=== PATIENT | male | born 1955 | race American Indian/Alaskan Native ===

== ENCOUNTER 2016-09-10 03:45 | Inpatient (IN) | payer OTHER ==
[2016-09-10] MEDS ORDERED: MAGNESIUM SULFATE 2GM/50ML 2 GM/50 ML BAG IV ONE (04:03)
[2016-09-10] MEDS ORDERED: PROVENTIL IH ONE ×2 (04:09→06:20)
[2016-09-10 06:11] LABS: Anion Gap 21 mmol/L; Blood Urea Nitrogen 14 mg/dL (9-20); Calcium 8.9 mg/dL (8.4-10.2); Carbon Dioxide 22 mmol/L (22-30); Glucose 110 mg/dL (75-100)
--- NOTE | 2016-09-10 08:04 | Emergency Department Report ---
HPI - General Chief Complaint: Dyspnea/Respdistress Time Seen by Provider: 09/10/16 07:47 - HPI HPI: This is a 63-year-old -[place] male who presents to the emergency department, driven in by a friend, with complaint of a three-day history of shortness of breath, wheezing and a dry cough. The patient has a history of COPD and bronchitis but is not oxygen dependent at home. He has an albuterol inhaler that he has been using without any relief. He does not have a breathing machine at home. He denies any fever, chest pain, back pain, nausea, vomiting or diaphoresis. He does not have a primary care doctor. He denies any tobacco abuse or illicit drug use. No recent travel or sick contacts at home ED Past Medical Hx - Past Medical History Previous Medical History?: Yes Hx Hypertension: Yes Hx Congestive Heart Failure: No Hx Diabetes: No Hx Asthma: No Hx COPD: Yes Additional medical history: BRONCHITIS - Surgical History Past Surgical History?: No - Social History Smoking Status: Never Smoker Substance Use Type: Alcohol - Medications Home Medications: Home Medications Medication Instructions Recorded Confirmed Last Taken Type hydrALAZINE [Apresoline TAB] 50 mg PO Q8HR #90 tablet 02/14/16 04/18/16 Unknown Rx ALBUTEROL NEB's [Proventil 0.083% 2.5 mg IH Q4HRT PRN #30 nebu 04/24/16 Unknown Rx NEBS] Budesonide [Pulmicort Respules] 0.5 mg IH Q12HRT #30 nebu 04/24/16 Unknown Rx HYDROcodone/APAP 5-325 [[place] 1 each PO Q4H PRN #12 tablet 04/24/16 Unknown Rx 5-325 mg TAB] Ipratropium/Albuterol Sulfate 1 ampul IH Q4HRT #30 ampul.neb 04/24/16 Unknown Rx [Duoneb 0.5 mg-3 mg/3 ml Soln] Prednisone [predniSONE 10 mg 10 mg PO .TAPER #1 tab.ds.pk 04/24/16 Unknown Rx (6-Day Pack, 21 Tabs)] amLODIPine [Norvasc] 10 mg PO QDAY #60 tablet 04/24/16 Unknown Rx Clonidine HCl [Catapres] 0.3 mg PO BID #60 tablet 04/25/16 Unknown Rx Losartan [Cozaar] 100 mg PO QDAY #60 tablet 04/25/16 Unknown Rx ED Review of Systems ROS: Stated complaint: LASHAY Other details as noted in HPI Comment: All other systems reviewed and negative Constitutional: denies: chills, fever Eyes: denies: eye pain, eye discharge, vision change ENT: denies: ear pain, throat pain Respiratory: cough, shortness of breath, wheezing Cardiovascular: denies: chest pain, palpitations Gastrointestinal: denies: abdominal pain, nausea, diarrhea Genitourinary: denies: urgency, dysuria Musculoskeletal: denies: back pain, joint swelling, arthralgia Skin: denies: rash, lesions Neurological: denies: headache, weakness, paresthesias Physical Exam - Physical Exam Vital Signs: Vital Signs 09/10/16 03:50 Temperature 98.2 F Pulse Rate 108 H Respiratory 28 H Rate Blood Pressure 186/136 [Right] O2 Sat by Pulse 86 Oximetry Physical Exam: GENERAL: The patient is well-developed well-nourished. HEENT: Normocephalic. Atraumatic. Extraocular motions are intact. Patient has moist mucous membranes. Pupils equal reactive to light bilaterally. NECK: Supple. Trachea is midline. CHEST/LUNGS: Moderate wheezing throughout the chest. A dry cough is heard during examination. No tachypnea or accessory muscle use. There is no respiratory distress noted. HEART/CARDIOVASCULAR: Regular. There is no tachycardia. There is no gallop rub or murmur. ABDOMEN: Abdomen is soft, nontender. Patient has normal bowel sounds. There is no abdominal distention. SKIN: Skin is warm and dry. No significant edema. NEURO: The patient is awake, alert, and oriented. The patient is cooperative. The patient has no focal neurologic deficits. The patient has normal speech. MUSCULOSKELETAL: There is no tenderness or deformity. There is no limitation range of motion. There is no evidence of acute injury. ED Course Vital Signs 09/10/16 03:50 Temperature 98.2 F Pulse Rate 108 H Respiratory 28 H Rate Blood Pressure 186/136 [Right] O2 Sat by Pulse 86 Oximetry ED Medical Decision Making - Lab Data Result diagrams: 09/10/16 04:28 - EKG Data -: EKG Interpreted by Me EKG shows normal: sinus rhythm, axis, intervals (left anterior fascicular blockLeft anterior fasicular block), QRS complexes, ST-T waves Rate: tachycardia (103 bpm) - EKG Data When compared to previous EKG there are: previous EKG unavailable Interpretation: other (sinus rhythm, left anterior fascicular block, mild tachycardia at 103 bpm) - Radiology Data Radiology results: image reviewed interpreted by me: Chest x-ray does not show any pleural effusions, pneumonia or pneumothorax or obvious acute process. - Medical Decision Making 61-year-old male presents with a few days of shortness of breath, wheezing. He denies any chest pain. Vital signs show some tachypnea and tachycardia but he is afebrile. On physical examination he does have some significant bronchospasm. He was given steroids, magnesium 2 different rounds of nebulized breathing treatments and upon reevaluation he is still having significant bronchospasm. He is not in any current respiratory distress and therefore does not appear to require any BiPAP at this time. However he is not improved enough for discharge home and will be admitted for serial steroids, breathing treatments and further evaluation. He has been accepted for admission by the hospitalist, Dr. Greene. - Differential Diagnosis COPD, bronchitis, CHF, pneumonia, [place] Critical Care Time: No Critical care attestation.: If time is entered above; I have spent that time in minutes in the direct care of this critically ill patient, excluding procedure time. ED Disposition Clinical Impression: Acute exacerbation of COPD with asthma, Bronchospasm, Shortness of breath Disposition: OP ADMITTED IP TO THIS HOSP Is pt being admited?: Yes Condition: Stable Referrals: PRIMARY CARE, [Primary Care Provider] - 3-5 Days Time of Disposition: 09:14
--- NOTE | 2016-09-10 08:20 | Admit Criteria Form ---
Admission Criteria Documentation: COPD Clinical Indications for Admission to Inpatient Care (Place 'X' for any and all applicable criteria): Admission is indicated for ANY ONE of the following (1)(2)(3): [ ]I. Acute exacerbation by high-risk comorbidity (e.g., pneumonia, dysrhythmia, heart failure, pleural effusion, pneumothorax) or severe underlying COPD (e.g., steroid dependent) [X ]II. Inpatient admission required rather than observation care (see Chronic Obstructive Pulmonary Disease: Observation Care) because of ANY ONE of the following: [X ]a) New or pre-existing signs or symptoms of COPD (eg, dyspnea or Tachypnea at rest or with minimal activity) that persist despite outpatient and observation care treatment [ ]b) New-onset hypoxemia (room air SaO2 less than 90%, PO2 less than 60 mm Hg (8.0 kPa)) that persists despite outpatient and observation care treatment [ ]c) Worsening of pre-existing hypoxemia (eg, new or increased requirement for supplemental oxygen to maintain oxygenation at baseline level) that persists despite outpatient and observation care treatment, with oxygen treatment needs performable only in acute inpatient setting [ ]d) Hypercarbia (PCO2 greater than 40 mm Hg (5.3 kPa))-induced respiratory acidosis (pH less than 7.35) that persists despite outpatient and observation care treatment [ ]e) Supplemental oxygen or respiratory treatments for over 24 hours that are performable only in acute inpatient setting [ ]f) Chest tube placement with active evacuation (e.g., suction, drainage) (5) [ ]g) Other condition, treatment or monitoring requiring inpatient admission [ ]III. Planned invasive surgical or diagnostic procedures requiring acute- care hospitalization [X ]IV. Acute respiratory failure (e.g., uncompensated hypercarbia, severe hypoxemia) [ ]V. Severe comorbid condition (e.g., severe steroid myopathy, acute vertebral fracture) that has acutely worsened pulmonary function [ ]. Confusion state, lethargy, obtundation, stupor or coma Extended stay beyond goal length of stay may be needed for (31)(32): [ ]a ) Respiratory Failure. [ ]b) Severe or persisting hypoxemia or hypercarbia [ ]c) Severe or persistent dyspnea [ ]d) Comorbidities (e.g. chronic heart failure, atrial fibrillation with rapid response, pneumonia) [ ]e) Malnutrition The original [facility] content created by [facility] has been revised. The portions of the content which have been revised are identified through the use of italic text or in bold, and [facility] has neither reviewed nor approved the modified material. All other unmodified content is copyright [facility]. Please see references footnoted in the original [facility] edition 2016 Admission Criteria Met: Yes
--- NOTE | 2016-09-10 09:08 | History and Physical Report ---
History of Present Illness Chief complaint: wheezing History of present illness: This is a 63-year-old -[place] male who presents with a three-day history of shortness of breath, wheezing and a dry cough. The patient has a history of COPD and bronchitis but is not oxygen dependent at home. He has an albuterol inhaler that he has been using without any relief. He states that he ran out of steroids, ran out of blood pressure medications, does not take any other medications at home because he ran out. He does not have a PCP and he has a follow-up with her doctor since he was last discharged from [facility] He denies any f. ever, chest pain, back pain, nausea, vomiting or diaphoresis. . He denies any tobacco abuse or illicit drug use. No recent travel or sick contacts at home Past History Past Medical History: COPD, hypertension Past Surgical History: No surgical history Social history: no significant social history (drinks 4 ounces of Sola 3 times a week) Family history: hypertension Medications and Allergies Allergies Allergy/AdvReac Type Severity Reaction Status Date / Time No Known Allergies Allergy Verified 04/18/16 09:58 Home Medications Medication Instructions Recorded Confirmed Last Taken Type Albuterol Sulfate [Ventolin HFA] 2 puff IH Q4H PRN 09/10/16 09/10/16 09/03/16 History predniSONE [Deltasone] 20 mg PO QDAY 09/10/16 09/10/16 09/03/16 History Review of Systems All systems: negative Constitutional: weakness Respiratory: cough, shortness of breath, dyspnea on exertion, wheezing Exam - Constitutional Vitals: Temp Pulse Resp BP Pulse Ox 98.2 F 108 H 28 H 186/136 86 09/10/16 03:50 09/10/16 03:50 09/10/16 03:50 09/10/16 03:50 09/10/16 03:50 General appearance: Present: no acute distress, well-nourished - EENT Eyes: Present: PERRL ENT: hearing intact, clear oral mucosa - Neck Neck: Present: supple, normal ROM - Respiratory Respiratory effort: normal Respiratory: bilateral: diminished, wheezing - Cardiovascular Heart Sounds: Present: S1 & S2. Absent: rub, click - Extremities Extremities: pulses symmetrical, No edema Peripheral Pulses: within normal limits - Abdominal General gastrointestinal: Present: soft, non-tender, non-distended, normal bowel sounds Male genitourinary: Present: normal - Integumentary Integumentary: Present: clear, warm, dry - Musculoskeletal Musculoskeletal: gait normal, strength equal bilaterally - Psychiatric Psychiatric: appropriate mood/affect, intact judgment & insight - Neurologic Neurologic: CNII-XII intact, moves all extremities Results - Labs CBC & Chem 7: 09/10/16 04:28 09/10/16 04:28 Labs: Laboratory Last Values VBG pH 7.377 (7.320-7.420) 09/10/16 04:28 Sodium 140 mmol/L (137-145) 09/10/16 04:28 Potassium 3.5 mmol/L (3.6-5.0) L 09/10/16 04:28 Chloride 100.5 mmol/L (98-107) 09/10/16 04:28 Carbon Dioxide 22 mmol/L (22-30) 09/10/16 04:28 Anion Gap 21 mmol/L 09/10/16 04:28 BUN 14 mg/dL (9-20) 09/10/16 04:28 Creatinine 0.7 mg/dL (0.8-1.5) L 09/10/16 04:28 Estimated GFR > 60 ml/min 09/10/16 04:28 BUN/Creatinine Ratio 20.00 % 09/10/16 04:28 Glucose 110 mg/dL (75-100) H 09/10/16 04:28 Lactic Acid 0.80 mmol/L (0.7-2.0) 09/10/16 04:28 Calcium 8.9 mg/dL (8.4-10.2) 09/10/16 04:28 Magnesium 2.90 mg/dL (1.7-2.3) H 09/10/16 04:28 Troponin T < 0.010 ng/mL (0.00-0.029) 09/10/16 04:28 - Imaging and Cardiology Chest x-ray: image reviewed (no infiltrate) Assessment and Plan Assessment and plan: 61-year-old man with past medical history of uncontrolled hypertension and COPD. Presents with shortness of breath cough and wheezing consistent with COPD exacerbation next 1. Acute hypoxic respiratory failure Oxygen sat of 86% in the ER Continue to supplementation, treat underlying cause which is COPD exacerbation next 2. COPD exacerbation Steroids, nebulizer, antibiotics, chest PT. 3. Accelerated HTN rx with IV meds, and resume home meds DVT prophylaxis: Lovenox Plan of care discussed with patient/family: Yes
[2016-09-10] MEDS ORDERED: ZOFRAN IV PRN (09:13)
[2016-09-10] MEDS ORDERED: MILK OF MAGNESIA PO PRN (09:13)
[2016-09-10] MEDS ORDERED: TYLENOL PO PRN (09:13)
[2016-09-10] MEDS ORDERED: DULCOLAX PR PRN (09:13)
[2016-09-10] MEDS ORDERED: NORCO 5/325 PO PRN (09:15)
[2016-09-10] MEDS ORDERED: APRESOLINE IV PRN (09:16)
[2016-09-10] MEDS ORDERED: CATAPRES ONE ×2 (09:54)
[2016-09-10] MEDS ORDERED: NORVASC ONE (09:54)
[2016-09-10] MEDS ORDERED: NON-FORMULARY (Clonidine Hcl [Catapres] 0.3 MG) PO SCH (10:00)
[2016-09-10] MEDS: COZAAR PO SCH (10:11)
[2016-09-10] MEDS: NORVASC PO SCH (10:13)
[2016-09-10] MEDS: LOVENOX SUB-Q SCH (10:13)
[2016-09-10 10:29] LABS: Basophils % (Auto) 0.4 % (0.0-1.8); Chloride 100.5 mmol/L (98-107); Eosinophils % (Auto) 5.4 % (0.0-4.3); Hematocrit 46.7 % (35.5-45.6); Hemoglobin 15.7 gm/dl (11.8-15.2); Mean Corpuscular HGB Conc 34 % (32-34); Mean Corpuscular Hemoglobin 30 pg (28-32); Mean Corpuscular Volume 89 fl (84-94); Platelet Count 219 K/mm3 (140-440); Potassium 3.5 mmol/L (3.6-5.0); Red Blood Count 5.26 M/mm3 (3.65-5.03); Red Cell Distribution Width 14.3 % (13.2-15.2); Sodium 140 mmol/L (137-145); White Blood Count 6.8 K/mm3 (4.5-11.0)
--- NOTE | 2016-09-10 10:38 | XRay Report ---
AP CHEST :09/10/16 03:45:00 CLINICAL: Difficulty breathing. COMPARISON:01/18/16 FINDINGS: Normal heart and pulmonary vasculature. The lungs are normally expanded and clear. Degenerative changes in thoracic spine. IMPRESSION: No acute cardiopulmonary process.
[2016-09-10] MEDS: ZITHROMAX 500 MG in NACL 0.9% 250ML 250 ML IV SCH (12:22)
[2016-09-10] MEDS: DUONEB 0.5 MG-3 MG/3 ML SOLN IH SCH ×2 (14:33→21:11)
[2016-09-10] MEDS: APRESOLINE PO SCH ×2 (15:15→23:09)
[2016-09-10] MEDS: PULMICORT IH SCH (21:11)
[2016-09-10] MEDS: CATAPRES PO SCH (23:05)
[2016-09-11] MEDS: DUONEB 0.5 MG-3 MG/3 ML SOLN IH SCH ×4 (03:02→21:11)
[2016-09-11 05:50] LABS: BUN/Creatinine Ratio 19.37; Calcium 8.9 mg/dL (8.4-10.2); Chloride 99.1 mmol/L (98-107); Potassium 3.9 mmol/L (3.6-5.0)
[2016-09-11] MEDS: APRESOLINE PO SCH ×3 (05:55→23:31)
[2016-09-11] MEDS: PULMICORT IH SCH ×2 (07:48→21:11)
[2016-09-11] MEDS ORDERED: NACL 0.9% 1000 ML 1,000 ML IV SCH (08:00)
[2016-09-11] MEDS: NORVASC PO SCH (10:30)
[2016-09-11] MEDS: CATAPRES PO SCH ×2 (10:35→23:31)
[2016-09-11] MEDS: COZAAR PO SCH (10:36)
[2016-09-11] MEDS: LOVENOX SUB-Q SCH (10:37)
[2016-09-11] MEDS: ZITHROMAX 500 MG in NACL 0.9% 250ML 250 ML IV SCH (10:45)
--- NOTE | 2016-09-11 16:03 | Progress Note ---
Assessment and Plan 61-year-old man with past medical history of uncontrolled hypertension and COPD. Presents with shortness of breath cough and wheezing consistent with COPD exacerbation next Acute hypoxic respiratory failure -Oxygen sat of 86% in the ER -Continue to supplementation, treat underlying cause which is COPD exacerbation next Acute COPD exacerbation -Steroids, nebulizer, antibiotics Accelerated HTN -rx with IV meds, and resumed home meds Acute renal failure - Place on gentle IV fluid hydration - Monitor renal function Subjective Date of service: 09/11/16 Interval history: Patient seen and examined. Medical records and medication list reviewed. No acute event overnight noted by the RN. Patient on venti mask Discussed plan of care at bedside with patient. Objective - Exam Narrative Exam: GENERAL: well-developed AAM lying on bed appeared to be in no discomfort. HEENT: Normocephalic. Atraumatic. No conjunctival congestion or icterus. Patient has moist mucous membranes. NECK: Supple. Trachea midline. CHEST/LUNGS: wheezes auscultated bilaterally, breathing nonlabored. HEART/CARDIOVASCULAR: Regular in rate and rhythm. S1 and S2 positive. ABDOMEN: Abdomen is soft, nontender. Patient has normal bowel sounds. SKIN: There is no rash. Warm and dry. NEURO: No focal motor deficit. Follows command. MUSCULOSKELETAL: No joint effusion or tenderness. EXTRIMITY: No edema, no cyanosis or clubbing. PSYCH: Cooperative. - Constitutional Vitals: Vital Signs - 12hr 09/11/16 09/11/16 09/11/16 05:55 07:48 07:58 Temperature Pulse Rate 76 Pulse Rate [ 71 69 Bilateral Throughout] Pulse Rate [ Left Radial] Respiratory Rate Respiratory 20 20 Rate [Bilateral Throughout] Blood Pressure 127/76 Blood Pressure [Left Arm] O2 Sat by Pulse 97 Oximetry 09/11/16 09/11/16 09/11/16 08:00 10:30 10:35 Temperature 98.4 F Pulse Rate 84 74 Pulse Rate [ Bilateral Throughout] Pulse Rate [ 74 Left Radial] Respiratory 18 Rate Respiratory Rate [Bilateral Throughout] Blood Pressure 128/70 128/70 Blood Pressure 128/70 [Left Arm] O2 Sat by Pulse 98 Oximetry 09/11/16 09/11/16 09/11/16 10:36 13:28 13:38 Temperature Pulse Rate 74 Pulse Rate [ 75 80 Bilateral Throughout] Pulse Rate [ Left Radial] Respiratory Rate Respiratory 18 20 Rate [Bilateral Throughout] Blood Pressure 128/70 Blood Pressure [Left Arm] O2 Sat by Pulse Oximetry - Labs CBC & Chem 7: 09/10/16 04:28 09/11/16 04:57 Labs: Abnormal lab results 09/11/16 Range/Units 04:57 BUN 31 H (9-20) mg/dL Creatinine 1.6 H D (0.8-1.5) mg/dL Glucose 176 H (75-100) mg/dL
[2016-09-11] MEDS ORDERED: PROVENTIL IH PRN (21:50)
[2016-09-12 06:30] LABS: BUN/Creatinine Ratio 25.29; Calcium 8.5 mg/dL (8.4-10.2); Chloride 100.7 mmol/L (98-107)
[2016-09-12] MEDS: APRESOLINE PO SCH ×3 (06:39→21:34)
[2016-09-12] MEDS: PULMICORT IH SCH ×2 (07:15→20:14)
[2016-09-12] MEDS: DUONEB 0.5 MG-3 MG/3 ML SOLN IH SCH ×3 (07:15→20:15)
[2016-09-12] MEDS: COZAAR PO SCH (12:16)
[2016-09-12] MEDS: LOVENOX SUB-Q SCH (12:16)
[2016-09-12] MEDS: NORVASC PO SCH (12:17)
[2016-09-12] MEDS: CATAPRES PO SCH ×2 (12:17→21:34)
[2016-09-12] MEDS: ZITHROMAX 500 MG in NACL 0.9% 250ML 250 ML IV SCH (14:06)
--- NOTE | 2016-09-12 17:45 | Progress Note ---
Assessment and Plan 61-year-old man with past medical history of uncontrolled hypertension and COPD. Presents with shortness of breath cough and wheezing consistent with COPD exacerbation next Acute hypoxic respiratory failure -Oxygen sat of 86% in the ER -Continue O2 supplementation, treat underlying cause which is COPD exacerbation Acute COPD exacerbation -Steroids, nebulizer, antibiotics Accelerated HTN -Treat with IV meds as needed, and resumed home meds Acute renal failure, likely vasomotor nephropathy - Placed on gentle IV fluid hydration - Monitor renal function Subjective Date of service: 09/12/16 Interval history: Patient seen and examined. Medical records and medication list reviewed. No acute event overnight noted by the RN. Patient on n/c, still has significant SOB with exertion Discussed plan of care at bedside with patient. Objective - Exam Narrative Exam: GENERAL: well-developed AAM lying on bed appeared to be in no discomfort. HEENT: Normocephalic. Atraumatic. No conjunctival congestion or icterus. Patient has moist mucous membranes. NECK: Supple. Trachea midline. CHEST/LUNGS: wheezes auscultated bilaterally, breathing nonlabored. HEART/CARDIOVASCULAR: Regular in rate and rhythm. S1 and S2 positive. ABDOMEN: Abdomen is soft, nontender. Patient has normal bowel sounds. SKIN: There is no rash. Warm and dry. NEURO: No focal motor deficit. Follows command. MUSCULOSKELETAL: No joint effusion or tenderness. EXTRIMITY: No edema, no cyanosis or clubbing. PSYCH: Cooperative. - Constitutional Vitals: Vital Signs - 12hr 09/12/16 09/12/16 09/12/16 06:39 07:15 07:25 Temperature Pulse Rate Pulse Rate [ 65 68 Bilateral Throughout] Pulse Rate [ Left Radial] Respiratory Rate Respiratory 18 20 Rate [Bilateral Throughout] Blood Pressure 148/78 Blood Pressure [Left Arm] O2 Sat by Pulse 98 Oximetry 09/12/16 09/12/16 09/12/16 08:47 12:16 12:17 Temperature 97.5 F L Pulse Rate 81 81 Pulse Rate [ Bilateral Throughout] Pulse Rate [ 77 Left Radial] Respiratory 20 Rate Respiratory Rate [Bilateral Throughout] Blood Pressure 166/86 166/86 Blood Pressure 135/68 [Left Arm] O2 Sat by Pulse 94 Oximetry 09/12/16 09/12/16 09/12/16 13:36 13:46 16:09 Temperature Pulse Rate 83 Pulse Rate [ 91 H 89 Bilateral Throughout] Pulse Rate [ Left Radial] Respiratory Rate Respiratory 20 20 Rate [Bilateral Throughout] Blood Pressure 128/64 Blood Pressure [Left Arm] O2 Sat by Pulse Oximetry 09/12/16 16:20 Temperature 97.5 F L Pulse Rate Pulse Rate [ Bilateral Throughout] Pulse Rate [ 80 Left Radial] Respiratory 20 Rate Respiratory Rate [Bilateral Throughout] Blood Pressure Blood Pressure 120/58 [Left Arm] O2 Sat by Pulse 95 Oximetry - Labs CBC & Chem 7: 09/10/16 04:28 09/12/16 05:52 Labs: Abnormal lab results 09/12/16 Range/Units 05:52 BUN 43 H (9-20) mg/dL Creatinine 1.7 H (0.8-1.5) mg/dL Glucose 164 H (75-100) mg/dL
[2016-09-13] MEDS: APRESOLINE PO SCH ×3 (05:44→22:31)
[2016-09-13 06:09] LABS: Basophils % (Auto) 0.1 % (0.0-1.8); Eosinophils % (Auto) 0.1 % (0.0-4.3); Hematocrit 41.1 % (35.5-45.6); Mean Corpuscular HGB Conc 34 % (32-34); Mean Corpuscular Hemoglobin 31 pg (28-32); Mean Corpuscular Volume 89 fl (84-94); Platelet Count 206 K/mm3 (140-440); Red Cell Distribution Width 14.5 % (13.2-15.2); White Blood Count 9.7 K/mm3 (4.5-11.0)
[2016-09-13 06:31] LABS: Anion Gap 20 mmol/L; BUN/Creatinine Ratio 28.57; Blood Urea Nitrogen 40 mg/dL (9-20); Calcium 8.3 mg/dL (8.4-10.2); Carbon Dioxide 22 mmol/L (22-30); Chloride 100.9 mmol/L (98-107); Glucose 157 mg/dL (75-100); Potassium 4.2 mmol/L (3.6-5.0); Sodium 139 mmol/L (137-145)
[2016-09-13] MEDS: DUONEB 0.5 MG-3 MG/3 ML SOLN IH SCH ×3 (08:12→20:29)
[2016-09-13] MEDS: PULMICORT IH SCH ×2 (08:12→20:29)
[2016-09-13] MEDS: ZITHROMAX 500 MG in NACL 0.9% 250ML 250 ML IV SCH (09:28)
[2016-09-13] MEDS: COZAAR PO SCH (09:29)
[2016-09-13] MEDS: CATAPRES PO SCH ×2 (09:29→22:30)
[2016-09-13] MEDS: LOVENOX SUB-Q SCH (09:29)
[2016-09-13] MEDS: NORVASC PO SCH (09:29)
--- NOTE | 2016-09-13 16:48 | Progress Note ---
Assessment and Plan 61-year-old man with past medical history of uncontrolled hypertension and COPD. Presents with shortness of breath cough and wheezing consistent with COPD exacerbation. Acute hypoxic respiratory failure -Oxygen sat of 86% in the ER -Continue O2 supplementation, treat underlying cause which is COPD exacerbation Acute COPD exacerbation -Steroids, nebulizer, antibiotics Accelerated HTN -Treat with IV meds as needed, and resumed home meds Acute renal failure, likely vasomotor nephropathy - Placed on gentle IV fluid hydration - Monitor renal function, cr 1.7 today Subjective Date of service: 09/13/16 Interval history: Patient seen and examined. Medical records and medication list reviewed. No acute event overnight noted by the RN. Patient on n/c, has SOB with exertion Discussed plan of care at bedside with patient. Objective - Exam Narrative Exam: GENERAL: well-developed AAM lying on bed appeared to be in no discomfort. HEENT: Normocephalic. Atraumatic. No conjunctival congestion or icterus. Patient has moist mucous membranes. NECK: Supple. Trachea midline. CHEST/LUNGS: wheezes auscultated bilaterally, breathing nonlabored. HEART/CARDIOVASCULAR: Regular in rate and rhythm. S1 and S2 positive. ABDOMEN: Abdomen is soft, nontender. Patient has normal bowel sounds. SKIN: There is no rash. Warm and dry. NEURO: No focal motor deficit. Follows command. MUSCULOSKELETAL: No joint effusion or tenderness. EXTRIMITY: No edema, no cyanosis or clubbing. PSYCH: Cooperative. - Constitutional Vitals: Vital Signs - 12hr 09/13/16 09/13/16 09/13/16 05:44 07:36 08:12 Temperature 97.5 F L Pulse Rate 70 Pulse Rate [ 89 Bilateral Throughout] Pulse Rate [ 86 Left Radial] Respiratory 20 Rate Respiratory 20 Rate [Bilateral Throughout] Blood Pressure 122/71 Blood Pressure 176/92 [Left Arm] O2 Sat by Pulse 92 97 Oximetry 09/13/16 09/13/16 09/13/16 08:27 13:57 14:07 Temperature Pulse Rate Pulse Rate [ 83 78 80 Bilateral Throughout] Pulse Rate [ Left Radial] Respiratory Rate Respiratory 20 20 20 Rate [Bilateral Throughout] Blood Pressure Blood Pressure [Left Arm] O2 Sat by Pulse Oximetry 09/13/16 15:00 Temperature 98.8 F Pulse Rate Pulse Rate [ Bilateral Throughout] Pulse Rate [ 80 Left Radial] Respiratory 20 Rate Respiratory Rate [Bilateral Throughout] Blood Pressure Blood Pressure 152/119 [Left Arm] O2 Sat by Pulse 98 Oximetry - Labs CBC & Chem 7: 09/13/16 05:31 09/13/16 05:25 Labs: Abnormal lab results 09/13/16 09/13/16 Range/Units 05:25 05:31 Lymph % (Auto) 7.8 L (13.4-35.0) % Lymph # 0.8 L (1.2-5.4) K/mm3 Seg Neutrophils % 89.5 H (40.0-70.0) % Seg Neutrophils # 8.7 H (1.8-7.7) K/mm3 BUN 40 H (9-20) mg/dL Glucose 157 H (75-100) mg/dL Calcium 8.3 L (8.4-10.2) mg/dL
[2016-09-14] MEDS: APRESOLINE PO SCH (05:58)
[2016-09-14] MEDS: DUONEB 0.5 MG-3 MG/3 ML SOLN IH SCH ×2 (07:22→13:37)
[2016-09-14] MEDS: PULMICORT IH SCH (07:23)
[2016-09-14 07:53] VITALS: BP 150/79
[2016-09-14] MEDS: COZAAR PO SCH (09:55)
[2016-09-14] MEDS: LOVENOX SUB-Q SCH (09:55)
[2016-09-14] MEDS: NORVASC PO SCH (09:56)
[2016-09-14] MEDS: CATAPRES PO SCH (09:56)
--- NOTE | 2016-09-14 12:07 | Discharge Summary ---
Providers - Providers Date of Admission: 09/10/16 11:13 Date of discharge: 09/14/16 Attending physician: HERI BURKETT Primary care physician: MARIPOSA LÓPEZ MD Hospitalization Condition: Stable Hospital course: 61-year-old man with past medical history of uncontrolled hypertension and COPD Presented to ER with shortness of breath cough and wheezing consistent with COPD exacerbation. He was placed on empiric steroid, antibiotics, and scheduled nebulizer breathing treatment. His renal function slightly declined and improved with IV fluid. His symptom improved significantly and was discharged home in stable condition. Discharge diagnosis: Acute hypoxic respiratory failure -Oxygen sat of 86% in the ER -Placed on O2 supplementation, treat underlying cause which is COPD exacerbation Acute COPD exacerbation -continued on Steroids, nebulizer, antibiotics Accelerated HTN -Treated with IV meds as needed, and resumed home meds - stable on discharge Acute renal failure, likely vasomotor nephropathy - Placed on gentle IV fluid hydration - Monitored renal function, cr 1.4 on discharge Disposition: DISCHARGED TO HOME OR SELFCARE Time spent for discharge: 32 minutes Core Measure Documentation - Palliative Care Palliative Care/ Comfort Measures: Not Applicable - Core Measures Any of the following diagnoses?: none Exam - Physical Exam Narrative exam: GENERAL: well-developed AAM lying on bed appeared to be in no discomfort. HEENT: Normocephalic. Atraumatic. No conjunctival congestion or icterus. Patient has moist mucous membranes. NECK: Supple. Trachea midline. CHEST/LUNGS: few wheezes auscultated bilaterally, breathing nonlabored. HEART/CARDIOVASCULAR: Regular in rate and rhythm. S1 and S2 positive. ABDOMEN: Abdomen is soft, nontender. Patient has normal bowel sounds. SKIN: There is no rash. Warm and dry. NEURO: No focal motor deficit. Follows command. MUSCULOSKELETAL: No joint effusion or tenderness. EXTRIMITY: No edema, no cyanosis or clubbing. PSYCH: Cooperative. - Constitutional Vitals: Temp Pulse Resp BP Pulse Ox 98.7 F 88 20 150/79 93 09/14/16 07:50 09/14/16 07:50 09/14/16 07:50 09/14/16 07:50 09/14/16 07:50 Plan Activity: advance as tolerated Weight Bearing Status: Weight Bear as Tolerated Diet: low fat, low salt Follow up with: PRIMARY CAREMD [Primary Care Provider] - 3-5 Days Prescriptions: Albuterol Sulfate [Ventolin HFA] 2 puff IH Q4H PRN 30 Days PRN Reason: Shortness Of Breath amLODIPine [Norvasc] 10 mg PO QDAY #30 tablet Azithromycin [Zithromax TAB] 500 mg PO QDAY #5 tablet Budesoni/Formotero 160-4.5(Nf) [Symbicort 160-4.5 (Nf)] 2 puff IH BID 30 Days cloNIDine [Catapres] 0.3 mg PO BID #60 tablet hydrALAZINE [Apresoline TAB] 50 mg PO Q8HR #90 tablet HYDROcodone/APAP 5-325 [[place] 5-325 mg TAB] 1 each PO Q4H PRN #10 tablet PRN Reason: Pain, Moderate (4-6) Losartan [Cozaar] 100 mg PO QDAY #30 tablet predniSONE [Deltasone] 20 mg PO QDAY #5 tablet
== END 2016-09-14 14:00 | disposition home or self-care (01) | DRG 189 ==
LOC: ED 03:45 → 3A 11:13
PROVIDERS: ADMIT Internal Medicine; ATTEND Internal Medicine
DX: J96.01 Acute respiratory failure with hypoxia (principal); N17.0 Acute kidney failure with tubular necrosis; J44.1 Chronic obstructive pulmonary disease with (acute) exacerbation; I10 Essential (primary) hypertension; Z82.49 Family history of ischemic heart disease and other diseases of the circulatory system
CPT/HCPCS: 36415; 71010; 80048; 82140; 82805; 83735; 84484; 85025; 93005; 93010; 94640; 94760; 96372; 96374; J0360; J0456; J1650; J2930; J3475; J7050

== ENCOUNTER 2017-04-08 20:06 | Inpatient (IN) | payer SELFPAY ==
[2017-04-08] MEDS ORDERED: CATAPRES PO ONE (20:53)
[2017-04-08] MEDS ORDERED: PROVENTIL IH ONE (20:54)
--- NOTE | 2017-04-08 20:55 | Emergency Department Report ---
ED Shortness of Breath HPI - General Chief Complaint: Dyspnea/Respdistress Stated Complaint: SOB Time Seen by Provider: 04/08/17 20:49 Source: patient Mode of arrival: Ambulatory Limitations: No Limitations - History of Present Illness Initial Comments: She is a 61-year-old male that presents to the emergency room complaints of shortness of breath and difficulty in breathing. Patient has a history of COPD and multiple COPD exacerbations. He states his shortness breath or 3 days and is worsening. Patient states is better with rest and his inhalers. Patient states his worse with movement. Patient denies fever and chills. Complains of cough. Denies chest pain. MD Complaint: shortness of breath, cough -: Gradual Severity: severe Pain Scale: 0 Quality: aching Consistency: constant Improves With: oxygen, rest, upright position Worsens With: lying flat, exertion, movement, inspiration Known History Of: COPD, asthma Context: recent URI Associated Symptoms: chest pain, pain with inspiration, cough, orhopnia Treatments Prior to Arrival: none - Related Data Home Oxygen Therapy: No Previous Rx's Medication Instructions Recorded Last Taken Type Albuterol Sulfate [Ventolin HFA] 2 puff IH Q4H PRN 30 Days 09/14/16 Unknown Rx [email or web address] Azithromycin [Zithromax TAB] 500 mg PO QDAY #5 tablet 09/14/16 Unknown Rx Budesoni/Formotero 160-4.5(Nf) 2 puff IH BID 30 Days inha 09/14/16 Unknown Rx [Symbicort 160-4.5 (Nf)] HYDROcodone/APAP 5-325 [[place] 1 each PO Q4H PRN #10 tablet 09/14/16 Unknown Rx 5-325 mg TAB] Losartan [Cozaar] 100 mg PO QDAY #30 tablet 09/14/16 Unknown Rx amLODIPine [Norvasc] 10 mg PO QDAY #30 tablet 09/14/16 Unknown Rx cloNIDine [Catapres] 0.3 mg PO BID #60 tablet 09/14/16 Unknown Rx hydrALAZINE [Apresoline TAB] 50 mg PO Q8HR #90 tablet 09/14/16 Unknown Rx predniSONE [Deltasone] 20 mg PO QDAY #5 tablet 09/14/16 Unknown Rx Allergies Allergy/AdvReac Type Severity Reaction Status Date / Time No Known Allergies Allergy Verified 04/18/16 09:58 ED Review of Systems ROS: Stated complaint: SOB Other details as noted in HPI Constitutional: no symptoms reported Eyes: denies: eye pain, eye discharge, vision change ENT: denies: ear pain, throat pain Respiratory: cough, shortness of breath, SOB with exertion, SOB at rest, wheezing Cardiovascular: denies: chest pain, palpitations Endocrine: no symptoms reported Gastrointestinal: denies: abdominal pain, nausea, diarrhea Genitourinary: denies: urgency, dysuria Musculoskeletal: denies: back pain, joint swelling, arthralgia Skin: denies: rash, lesions Neurological: denies: headache, weakness, paresthesias Psychiatric: denies: anxiety, depression Hematological/Lymphatic: denies: easy bleeding, easy bruising ED Past Medical Hx - Past Medical History Hx Hypertension: Yes Hx Congestive Heart Failure: No Hx Diabetes: No Hx Asthma: Yes Hx COPD: Yes Hx HIV: No Additional medical history: BRONCHITIS - Surgical History Past Surgical History?: No - Family History Family history: hypertension - Social History Smoking Status: Former Smoker Substance Use Type: None - Medications Home Medications: Home Medications Medication Instructions Recorded Confirmed Last Taken Type Albuterol Sulfate [Ventolin HFA] 2 puff IH Q4H PRN 30 Days 09/14/16 Unknown Rx [email or web address] Azithromycin [Zithromax TAB] 500 mg PO QDAY #5 tablet 09/14/16 Unknown Rx Budesoni/Formotero 160-4.5(Nf) 2 puff IH BID 30 Days inha 09/14/16 Unknown Rx [Symbicort 160-4.5 (Nf)] HYDROcodone/APAP 5-325 [[place] 1 each PO Q4H PRN #10 tablet 09/14/16 Unknown Rx 5-325 mg TAB] Losartan [Cozaar] 100 mg PO QDAY #30 tablet 09/14/16 Unknown Rx amLODIPine [Norvasc] 10 mg PO QDAY #30 tablet 09/14/16 Unknown Rx cloNIDine [Catapres] 0.3 mg PO BID #60 tablet 09/14/16 Unknown Rx hydrALAZINE [Apresoline TAB] 50 mg PO Q8HR #90 tablet 09/14/16 Unknown Rx predniSONE [Deltasone] 20 mg PO QDAY #5 tablet 09/14/16 Unknown Rx ED Physical Exam - General Limitations: No Limitations General appearance: alert, in distress - Head Head exam: Present: atraumatic, normocephalic - Eye Eye exam: Present: normal appearance - ENT ENT exam: Present: mucous membranes dry - Neck Neck exam: Present: normal inspection - Respiratory Respiratory exam: Present: respiratory distress, wheezes, rhonchi - Cardiovascular Cardiovascular Exam: Present: regular rate, normal rhythm. Absent: systolic murmur, diastolic murmur, rubs, gallop - GI/Abdominal GI/Abdominal exam: Present: soft, normal bowel sounds - Rectal Rectal exam: Present: deferred - Extremities Exam Extremities exam: Present: normal inspection - Back Exam Back exam: Present: normal inspection - Neurological Exam Neurological exam: Present: alert, oriented X3 - Psychiatric Psychiatric exam: Present: normal affect, normal mood - Skin Skin exam: Present: warm, dry, intact, normal color. Absent: rash ED Course Vital Signs 04/08/17 04/08/17 04/08/17 20:34 20:36 20:41 Temperature 98.6 F 98.6 F Pulse Rate 109 H 109 H 109 H Respiratory 26 H 21 19 Rate Blood Pressure 230/156 Blood Pressure 230/156 [Right] O2 Sat by Pulse 94 93 96 Oximetry 04/08/17 04/08/17 04/08/17 20:46 21:00 21:15 Temperature Pulse Rate 110 H 117 H 115 H Respiratory 17 30 H 28 H Rate Blood Pressure 230/156 230/156 Blood Pressure [Right] O2 Sat by Pulse 97 96 94 Oximetry 04/08/17 04/08/17 04/08/17 21:31 21:38 21:45 Temperature Pulse Rate 101 H 97 H Respiratory 20 32 H 20 Rate Blood Pressure 169/102 159/93 Blood Pressure [Right] O2 Sat by Pulse 91 94 91 Oximetry 04/08/17 04/08/17 04/08/17 22:00 22:15 22:31 Temperature Pulse Rate 101 H 100 H 99 H Respiratory 23 21 18 Rate Blood Pressure 163/92 163/92 143/83 Blood Pressure [Right] O2 Sat by Pulse 90 93 94 Oximetry 04/08/17 04/08/17 22:45 23:00 Temperature Pulse Rate 98 H 93 H Respiratory 28 H 19 Rate Blood Pressure 156/94 135/72 Blood Pressure [Right] O2 Sat by Pulse 96 95 Oximetry ED Medical Decision Making - Lab Data Result diagrams: 04/08/17 20:52 04/08/17 23:03 - EKG Data -: EKG Interpreted by Me EKG shows normal: sinus rhythm Rate: tachycardia - EKG Data Interpretation: no acute changes - Radiology Data Radiology results: image reviewed interpreted by me: Negative chest x-ray Dr. Conteh, hospitalist consultation for admission. Dr. Conteh accepted the patient. Dr. Conteh to assume care. All labs and diagnostics reviewed - Differential Diagnosis COPD exacerbation, pneumonia, bronchitis, asthma, shortness of breath Critical Care Time: Yes Critical care attestation.: If time is entered above; I have spent that time in minutes in the direct care of this critically ill patient, excluding procedure time. Critical Care Time: 30 minutes with patient critical care time. Involving respiratory and hypoxia ED Disposition Clinical Impression: Shortness of breath, Hypoxia, COPD exacerbation Disposition: 09 OP ADMIT IP TO THIS HOSP Is pt being admited?: Yes Does the pt Need Aspirin: No Condition: Serious Time of Disposition: 01:04
[2017-04-08 21:15] LABS: Hematocrit 49.2 % (35.5-45.6); Hemoglobin 16.6 gm/dl (11.8-15.2); Mean Corpuscular HGB Conc 34 % (32-34); Mean Corpuscular Hemoglobin 30 pg (28-32); Mean Corpuscular Volume 88 fl (84-94); Platelet Count 234 K/mm3 (140-440); Red Blood Count 5.56 M/mm3 (3.65-5.03); Red Cell Distribution Width 14.4 % (13.2-15.2); White Blood Count 7.3 K/mm3 (4.5-11.0)
[2017-04-08 21:27] LABS: INR 0.98 (0.87-1.13); Partial Thromboplastin Time 27.1 Sec. (24.2-36.6)
[2017-04-08 21:30] LABS: Creatine Kinase MB 7.2 ng/mL (0.0-4.0)
[2017-04-08] MEDS ORDERED: DUONEB *Not for PRN Use IH ONE (21:41)
--- NOTE | 2017-04-08 22:00 | XRay Report ---
FINAL REPORT EXAM: XR CHEST 1V AP HISTORY: Dyspnea TECHNIQUE: upright single view chest PRIORS: Comparison is dated September 10, 2016 FINDINGS: Cardiac and mediastinal contours are unremarkable. No focal pulmonary infiltrate is identified. No pleural fluid collection seen. Pulmonary vasculature is unremarkable. IMPRESSION: Negative single-view chest
[2017-04-08 23:00] LABS: Blastocytes % (Manual) 0 %
[2017-04-08 23:01] LABS: Diff Status Complete; Platelet Estimate Consistent w Auto
[2017-04-08 23:45] LABS: Alanine Aminotransferase 15 units/L (7-56); Albumin 4.3 g/dL (3.9-5); Albumin/Globulin Ratio 1.4 %; Alkaline Phosphatase 101 units/L (35-129); Anion Gap 21 mmol/L; BUN/Creatinine Ratio 16; Blood Urea Nitrogen 16 mg/dL (9-20); Calcium 9.2 mg/dL (8.4-10.2); Carbon Dioxide 25 mmol/L (22-30); Chloride 99.2 mmol/L (98-107); Glucose 141 mg/dL (75-100); Potassium 3.4 mmol/L (3.6-5.0); Sodium 142 mmol/L (137-145); Total Protein 7.4 g/dL (6.3-8.2)
[2017-04-09] MEDS ORDERED: LEVAQUIN 500MG/100ML 500 MG/100 ML BAG IV ONE (01:03)
[2017-04-09] MEDS ORDERED: DULCOLAX PR PRN (02:27)
[2017-04-09] MEDS ORDERED: ZOFRAN IV PRN (02:27)
[2017-04-09] MEDS ORDERED: MILK OF MAGNESIA PO PRN (02:27)
[2017-04-09] MEDS ORDERED: TYLENOL PO PRN (02:27)
--- NOTE | 2017-04-09 02:40 | History and Physical Report ---
History of Present Illness Date of examination: 04/09/17 History of present illness: 58-year-old man with history of COPD, hypertension comes emergency room with complaints of shortness of breath that has been ongoing over the last 1 week. He used his nebulizer treatment at home with relief but ran out 3 days ago. Also complain of cough productive of thick yellow-white sputum. Denies recent travel. Constitutional: no weight loss Ears, eyes, nose, mouth and throat: no nasal congestion, no nasal discharge, no sinus pressure, blurry vision, diplopia Neck: No neck pain or rigidity. Cardiovascular: No chest pain, palpitations Respiratory: + cough Gastrointestinal: No hematochezia Genitourinary : no dysuria, frequency , hematuria Musculoskeletal: no muscle ache Integumentary: no rash, no pruritis Neurological: no parathesias, focal weakness Endocrine: no cold or heat intolerance, no polyuria or polydipsia Hematologic/Lymphatic: no easy bruising, no easy bleeding, no gland swelling Allergic/Immunologic: no urticaria, no angioedema. PAST MEDICAL HISTORY:COPD, hypertension PAST SURGICAL HISTORY: None SOCIAL HISTORY: Drinks 4 brinda drinks a week, no tobacco or drugs FAMILY HISTORY: Hypertension Medications and Allergies Allergies Allergy/AdvReac Type Severity Reaction Status Date / Time No Known Allergies Allergy Verified 04/18/16 09:58 Home Medications Medication Instructions Recorded Confirmed Last Taken Type Albuterol Sulfate [Ventolin HFA] 2 puff IH Q4H PRN 30 Days 09/14/16 Unknown Rx [email or web address] Azithromycin [Zithromax TAB] 500 mg PO QDAY #5 tablet 09/14/16 Unknown Rx Budesoni/Formotero 160-4.5(Nf) 2 puff IH BID 30 Days inha 09/14/16 Unknown Rx [Symbicort 160-4.5 (Nf)] HYDROcodone/APAP 5-325 [[place] 1 each PO Q4H PRN #10 tablet 09/14/16 Unknown Rx 5-325 mg TAB] Losartan [Cozaar] 100 mg PO QDAY #30 tablet 09/14/16 Unknown Rx amLODIPine [Norvasc] 10 mg PO QDAY #30 tablet 09/14/16 Unknown Rx cloNIDine [Catapres] 0.3 mg PO BID #60 tablet 09/14/16 Unknown Rx hydrALAZINE [Apresoline TAB] 50 mg PO Q8HR #90 tablet 09/14/16 Unknown Rx predniSONE [Deltasone] 20 mg PO QDAY #5 tablet 09/14/16 Unknown Rx Active Meds: Active Medications Acetaminophen (Tylenol) 650 mg PO Q4H PRN PRN Reason: Pain MILD(1-3)/Fever >100.5/WILSON Albuterol/Ipratropium (Duoneb *Not For Prn Use*) 1 ampul IH Q6HRT MIS Amlodipine Besylate (Norvasc) 10 mg PO QDAY MIS Bisacodyl (Dulcolax) 10 mg [place] QDAY PRN PRN Reason: Constipation unrelieved by MOM Enoxaparin Sodium (Lovenox) 30 mg SUB-Q QDAY MIS Magnesium Hydroxide (Milk Of Magnesia) 30 ml PO Q4H PRN PRN Reason: Constipation Methylprednisolone Sodium Succinate (Solu-Medrol) 125 mg IV Q6H MIS Ondansetron HCl (Zofran) 4 mg IV Q8H PRN PRN Reason: N/V unrelieved by Reglan Exam - Physical Exam Narrative exam: Gen. appearance: Patient lying in bed, no apparent distress HEENT: Normocephalic, atraumatic, pupils equally round and reactive to light, extraocular movement intact, and no sclericterus,. No JVD or thyromegaly or nodule,neck supple, no carotid bruit ,mucous membranes moist, no exudate or erythema Heart: S1, S2, regular rate and rhythm Lungs: wheezing, decrease air entry bilaterally, breathing comfortable Abdomen: Positive bowel sounds, nontender, nondistended, no organomegaly Extremity: No edema, cyanosis, clubbing Skin: No rash, nodules, warm, dry Neuro: Oriented 3, cranial nerves II-12 intact, speech is fluent, motor and sensory intact - Constitutional Vitals: Temp Pulse Resp BP Pulse Ox 98.6 F 88 13 136/112 97 04/08/17 20:41 04/09/17 02:15 04/09/17 02:15 04/09/17 02:15 04/09/17 02:15 Results - Labs CBC & Chem 7: 04/08/17 20:52 04/08/17 23:03 Labs: Abnormal lab results 04/08/17 04/08/17 04/08/17 Range/Units 20:52 20:52 20:52 RBC 5.56 H (3.65-5.03) M/mm3 Hgb 16.6 H (11.8-15.2) gm/dl Hct 49.2 H (35.5-45.6) % Eosinophils % (Manual) 15.0 H (0.0-4.3) % Eosinophils # (Manual) 1.1 H (0.0-0.4) K/mm3 D-Dimer 338.05 H (0-234) ng/mlDDU Potassium (3.6-5.0) mmol/L Glucose (75-100) mg/dL Total Creatine Kinase 535 H (55-170) units/L CK-MB (CK-2) 7.2 H (0.0-4.0) ng/mL 04/08/17 Range/Units 23:03 RBC (3.65-5.03) M/mm3 Hgb (11.8-15.2) gm/dl Hct (35.5-45.6) % Eosinophils % (Manual) (0.0-4.3) % Eosinophils # (Manual) (0.0-0.4) K/mm3 D-Dimer (0-234) ng/mlDDU Potassium 3.4 L (3.6-5.0) mmol/L Glucose 141 H (75-100) mg/dL Total Creatine Kinase (55-170) units/L CK-MB (CK-2) (0.0-4.0) ng/mL - Imaging and Cardiology EKG: image reviewed Chest x-ray: image reviewed Assessment and Plan Assessment COPD exacerbation Elevated d-dimer hypertension Plan Admit to medicine Start high dose steroids, nebulizer treatment, antibiotic Check CT chest DVT prophalaxis
[2017-04-09] MEDS ORDERED: NACL ONE (02:43)
--- NOTE | 2017-04-09 03:29 | Cat Scan Report ---
FINAL REPORT EXAM: CT ANGIO CHEST HISTORY: sob TECHNIQUE: A CT angiogram was performed following the intravenous injection of 100 cc of Omnipaque 350. MIP sagittal, rotational and coronal reconstructions were reviewed. Correlation is made to the study of 12/22/2015. FINDINGS: There is no evidence of pulmonary embolus or aortic dissection. The heart size is normal. Pericardial fluid is not seen. There are small hilar lymph nodes bilaterally. Pleural fluid is not identified. The lungs do not show any infiltrates or effusions. At the thoracic inlet the thyroid gland appears normal. In the upper abdomen the adrenal glands appear normal. The skeletal structures reveal multilevel disc degeneration in the thoracic spine IMPRESSION: No evidence of pulmonary embolus or aortic dissection. No acute process in the chest.
[2017-04-09] MEDS: APRESOLINE IV PRN ×2 (05:51→22:00)
[2017-04-09] MEDS: DUONEB *Not for PRN Use IH SCH ×3 (08:05→20:59)
[2017-04-09] MEDS: LOVENOX SUB-Q SCH (09:13)
[2017-04-09] MEDS: NORVASC PO SCH (09:13)
[2017-04-09] MEDS ORDERED: LOVENOX SUB-Q SCH (10:00)
[2017-04-09] MEDS ORDERED: CATAPRES PO SCH (10:00)
[2017-04-09] MEDS: ZITHROMAX 500 MG in NACL 0.9% 250ML 250 ML IV SCH (11:47)
[2017-04-09] MEDS: COZAAR PO SCH (12:06)
--- NOTE | 2017-04-09 15:12 | Event Note ---
Date: 04/09/17 Patient was admitted this morning with acute exacerbation of COPD Patient seen and examined, medical records reviewed Agree with the current management Possible discharge in 1-2 days if stable Plan of care discussed with the patient, answered all her questions
[2017-04-09] MEDS: APRESOLINE PO SCH ×2 (15:25→21:59)
[2017-04-10] MEDS: DUONEB *Not for PRN Use IH SCH ×4 (02:47→20:04)
[2017-04-10 05:46] LABS: Basophils % (Auto) 0.1 % (0.0-1.8); Hematocrit 43.4 % (35.5-45.6); Hemoglobin 14.9 gm/dl (11.8-15.2); Mean Corpuscular HGB Conc 34 % (32-34); Mean Corpuscular Hemoglobin 31 pg (28-32); Mean Corpuscular Volume 89 fl (84-94); Platelet Count 228 K/mm3 (140-440); Red Blood Count 4.88 M/mm3 (3.65-5.03); Red Cell Distribution Width 14.5 % (13.2-15.2); White Blood Count 11.2 K/mm3 (4.5-11.0)
[2017-04-10] MEDS: APRESOLINE PO SCH ×3 (06:09→21:25)
[2017-04-10 06:12] LABS: Anion Gap 26 mmol/L; BUN/Creatinine Ratio 22; Blood Urea Nitrogen 31 mg/dL (9-20); Calcium 8.9 mg/dL (8.4-10.2); Carbon Dioxide 20 mmol/L (22-30); Chloride 96.7 mmol/L (98-107); Glucose 222 mg/dL (75-100); Potassium 3.6 mmol/L (3.6-5.0); Sodium 139 mmol/L (137-145)
[2017-04-10] MEDS: COZAAR PO SCH (10:54)
[2017-04-10] MEDS: NORVASC PO SCH (10:55)
[2017-04-10] MEDS: ZITHROMAX 500 MG in NACL 0.9% 250ML 250 ML IV SCH (10:55)
[2017-04-10] MEDS: LOVENOX SUB-Q SCH (10:55)
[2017-04-10] MEDS ORDERED: Fluarix Quad 2017-2018(36 MOS+ IM ONE (12:00)
--- NOTE | 2017-04-10 12:32 | Vascular Lab Report ---
LOWER EXTREMITY VENOUS DUPLEX: REASON FOR EXAM: Elevated d-dimer. COMMENTS ON THE RIGHT: All veins visualized are freely compressible without evidence of internal echogenicity. Flow is spontaneous and phasic throughout. COMMENTS ON THE LEFT: All veins visualized are freely compressible without evidence of internal echogenicity. Flow is spontaneous and phasic throughout. IMPRESSION: No evidence of acute or chronic deep venous thrombosis in either lower extremity.
--- NOTE | 2017-04-10 18:13 | Progress Note ---
Assessment and Plan Assessment and plan: --Acute hypoxic respiratory failure; oxygen titrate O2 sats to more than 90% Nebulizers, IV steroids, IV antibiotics, had inhalation steroids, supportive care --Elevated D dimers; workup negative for PE and DVT --Accelerated hypertension; continue current antihypertensives and when necessary medications --Acute exacerbation of COPD; oxygen, nebulizers, tapering doses of steroids, IV antibiotics, inhalation steroids --Acute bronchitis; bronchodilators, antihistamines, supportive care --Acute pneumonitis; antibiotic, follow cultures --Acute renal failure due to vasomotor nephropathy Closely monitor renal function, avoid nephrotoxin --DVT prophylaxis with Lovenox --Full code Closely monitor the patient and adjust management as needed Evaluation for home oxygen at discharge Possible discharge in 1-2 days if stable Plan of care discussed with the patient, answered all his questions History Interval history: Patient seen and examined in his room medical records reviewed Complaints of shortness of breath, mild wheezing Alert awake oriented 3 Vital signs reviewed Hospitalist Physical - Constitutional Vitals: Temp Pulse Resp BP Pulse Ox 98.5 F 113 H 24 137/76 94 04/10/17 15:43 04/10/17 14:05 04/10/17 15:43 04/10/17 15:43 04/10/17 08:11 General appearance: Present: no acute distress, well-nourished - EENT Eyes: Present: PERRL, EOM intact - Neck Neck: Present: supple, normal ROM - Respiratory Respiratory effort: normal Respiratory: bilateral: diminished, wheezing, negative: rales, rhonchi - Cardiovascular Rhythm: regular Heart Sounds: Present: S1 & S2 - Extremities Extremities: no ischemia, No edema - Abdominal General gastrointestinal: soft, non-tender, non-distended, normal bowel sounds - Integumentary Integumentary: Present: clear, warm - Psychiatric Psychiatric: appropriate mood/affect, cooperative - Neurologic Neurologic: CNII-XII intact, moves all extremities Results - Labs CBC & Chem 7: 04/10/17 04:46 04/10/17 04:46 Labs: Laboratory Last Values WBC 11.2 K/mm3 (4.5-11.0) H 04/10/17 04:46 RBC 4.88 M/mm3 (3.65-5.03) 04/10/17 04:46 Hgb 14.9 gm/dl (11.8-15.2) 04/10/17 04:46 Hct 43.4 % (35.5-45.6) 04/10/17 04:46 MCV 89 fl (84-94) 04/10/17 04:46 MCH 31 pg (28-32) 04/10/17 04:46 MCHC 34 % (32-34) 04/10/17 04:46 RDW 14.5 % (13.2-15.2) 04/10/17 04:46 Plt Count 228 K/mm3 (140-440) 04/10/17 04:46 Lymph % (Auto) 8.1 % (13.4-35.0) L 04/10/17 04:46 [place] % (Auto) 4.0 % (0.0-7.3) 04/10/17 04:46 Eos % (Auto) 0.0 % (0.0-4.3) 04/10/17 04:46 Baso % (Auto) 0.1 % (0.0-1.8) 04/10/17 04:46 Lymph # 0.9 K/mm3 (1.2-5.4) L 04/10/17 04:46 [place] # 0.5 K/mm3 (0.0-0.8) 04/10/17 04:46 Eos # 0.0 K/mm3 (0.0-0.4) 04/10/17 04:46 Baso # 0.0 K/mm3 (0.0-0.1) 04/10/17 04:46 Add Manual Diff Complete 04/08/17 20:52 Total Counted 100 04/08/17 20:52 Seg Neutrophils % 87.8 % (40.0-70.0) H 04/10/17 04:46 Seg Neuts % (Manual) 53.0 % (40.0-70.0) 04/08/17 20:52 Band Neutrophils % 0 % 04/08/17 20:52 Lymphocytes % (Manual) 23.0 % (13.4-35.0) 04/08/17 20:52 Reactive Lymphs % (Man) 1.0 % 04/08/17 20:52 Monocytes % (Manual) 7.0 % (0.0-7.3) 04/08/17 20:52 Eosinophils % (Manual) 15.0 % (0.0-4.3) H 04/08/17 20:52 Basophils % (Manual) 1.0 % (0.0-1.8) 04/08/17 20:52 Metamyelocytes % 0 % 04/08/17 20:52 Myelocytes % 0 % 04/08/17 20:52 Promyelocytes % 0 % 04/08/17 20:52 Blast Cells % 0 % 04/08/17 20:52 Nucleated RBC % Not Reportable 04/08/17 20:52 Seg Neutrophils # 9.8 K/mm3 (1.8-7.7) H 04/10/17 04:46 Seg Neutrophils # Man 3.9 K/mm3 (1.8-7.7) 04/08/17 20:52 Band Neutrophils # 0.0 K/mm3 04/08/17 20:52 Lymphocytes # (Manual) 1.7 K/mm3 (1.2-5.4) 04/08/17 20:52 Abs React Lymphs (Man) 0.1 K/mm3 04/08/17 20:52 Monocytes # (Manual) 0.5 K/mm3 (0.0-0.8) 04/08/17 20:52 Eosinophils # (Manual) 1.1 K/mm3 (0.0-0.4) H 04/08/17 20:52 Basophils # (Manual) 0.1 K/mm3 (0.0-0.1) 04/08/17 20:52 Metamyelocytes # 0.0 K/mm3 04/08/17 20:52 Myelocytes # 0.0 K/mm3 04/08/17 20:52 Promyelocytes # 0.0 K/mm3 04/08/17 20:52 Blast Cells # 0.0 K/mm3 04/08/17 20:52 WBC Morphology Not Reportable 04/08/17 20:52 Hypersegmented Neuts Not Reportable 04/08/17 20:52 Hyposegmented Neuts Not Reportable 04/08/17 20:52 Hypogranular Neuts Not Reportable 04/08/17 20:52 Smudge Cells Not Reportable 04/08/17 20:52 Toxic Granulation Not Reportable 04/08/17 20:52 Toxic Vacuolation Not Reportable 04/08/17 20:52 Dohle Bodies Not Reportable 04/08/17 20:52 Pelger-Huet Anomaly Not Reportable 04/08/17 20:52 Ángel Rods Not Reportable 04/08/17 20:52 Platelet Estimate Consistent w auto 04/08/17 20:52 Clumped Platelets Not Reportable 04/08/17 20:52 Plt Clumps, EDTA Not Reportable 04/08/17 20:52 Large Platelets Not Reportable 04/08/17 20:52 Giant Platelets Not Reportable 04/08/17 20:52 Platelet Satelliting Not Reportable 04/08/17 20:52 Plt Morphology Comment Not Reportable 04/08/17 20:52 RBC Morphology Not Reportable 04/08/17 20:52 Dimorphic RBCs Not Reportable 04/08/17 20:52 Polychromasia Not Reportable 04/08/17 20:52 Hypochromasia Not Reportable 04/08/17 20:52 Poikilocytosis Not Reportable 04/08/17 20:52 Anisocytosis Not Reportable 04/08/17 20:52 Microcytosis Not Reportable 04/08/17 20:52 Macrocytosis Not Reportable 04/08/17 20:52 Spherocytes Not Reportable 04/08/17 20:52 Pappenheimer Bodies Not Reportable 04/08/17 20:52 Sickle Cells Not Reportable 04/08/17 20:52 Target Cells Not Reportable 04/08/17 20:52 Tear Drop Cells Not Reportable 04/08/17 20:52 Ovalocytes Not Reportable 04/08/17 20:52 Helmet Cells Not Reportable 04/08/17 20:52 Pierre-Bromide Bodies Not Reportable 04/08/17 20:52 [place] Rings Not Reportable 04/08/17 20:52 [place] Cells Not Reportable 04/08/17 20:52 Bite Cells Not Reportable 04/08/17 20:52 Crenated Cell Not Reportable 04/08/17 20:52 Elliptocytes Not Reportable 04/08/17 20:52 Acanthocytes (Spur) Not Reportable 04/08/17 20:52 Rouleaux Not Reportable 04/08/17 20:52 Hemoglobin C Crystals Not Reportable 04/08/17 20:52 Schistocytes Not Reportable 04/08/17 20:52 Malaria parasites Not Reportable 04/08/17 20:52 Telly Bodies Not Reportable 04/08/17 20:52 Hem Pathologist Commnt No 04/08/17 20:52 PT 13.5 Sec. (12.2-14.9) 04/08/17 20:52 INR 0.98 (0.87-1.13) 04/08/17 20:52 APTT 27.1 Sec. (24.2-36.6) 04/08/17 20:52 D-Dimer 338.05 ng/mlDDU (0-234) H 04/08/17 20:52 Sodium 139 mmol/L (137-145) 04/10/17 04:46 Potassium 3.6 mmol/L (3.6-5.0) 04/10/17 04:46 Chloride 96.7 mmol/L (98-107) L 04/10/17 04:46 Carbon Dioxide 20 mmol/L (22-30) L 04/10/17 04:46 Anion Gap 26 mmol/L 04/10/17 04:46 BUN 31 mg/dL (9-20) H 04/10/17 04:46 Creatinine 1.4 mg/dL (0.8-1.5) 04/10/17 04:46 Estimated GFR > 60 ml/min 04/10/17 04:46 BUN/Creatinine Ratio 22 % 04/10/17 04:46 Glucose 222 mg/dL (75-100) H 04/10/17 04:46 Lactic Acid 1.20 mmol/L (0.7-2.0) 04/08/17 20:52 Calcium 8.9 mg/dL (8.4-10.2) 04/10/17 04:46 Total Bilirubin 0.30 mg/dL (0.1-1.2) 04/08/17 23:03 AST 22 units/L (5-40) 04/08/17 23:03 ALT 15 units/L (7-56) 04/08/17 23:03 Alkaline Phosphatase 101 units/L (35-129) 04/08/17 23:03 Total Creatine Kinase 535 units/L (55-170) H 04/08/17 20:52 CK-MB (CK-2) 7.2 ng/mL (0.0-4.0) H 04/08/17 20:52 CK-MB (CK-2) Rel Index 1.3 (0-4) 04/08/17 20:52 Troponin T < 0.010 ng/mL (0.00-0.029) 04/08/17 22:43 NT-Pro-B Natriuret Pep 45.11 pg/mL (0-900) 04/08/17 20:57 Total Protein 7.4 g/dL (6.3-8.2) 04/08/17 23:03 Albumin 4.3 g/dL (3.9-5) 04/08/17 23:03 Albumin/Globulin Ratio 1.4 % 04/08/17 23:03 Lipase 26 units/L (13-60) 04/08/17 20:52
[2017-04-10] MEDS: PULMICORT IH SCH (20:04)
[2017-04-10] MEDS: BROVANA NEBU IH SCH (20:09)
[2017-04-10] MEDS: ROBITUSSIN AC PO PRN (20:42)
[2017-04-10] MEDS ORDERED: NON-FORMULARY (Budesoni/Formotero 160-4.5(Nf) 2 PUFF) IH SCH (22:00)
[2017-04-11] MEDS: DUONEB *Not for PRN Use IH SCH ×4 (02:09→19:59)
[2017-04-11] MEDS: ROBITUSSIN AC PO PRN ×4 (03:10→22:24)
[2017-04-11] MEDS: APRESOLINE PO SCH ×3 (06:32→22:25)
[2017-04-11] MEDS: LASIX IV SCH (06:32)
[2017-04-11] MEDS ORDERED: PROVENTIL IH PRN (06:38)
[2017-04-11] MEDS: NORVASC PO SCH (10:17)
[2017-04-11] MEDS: LOVENOX SUB-Q SCH (10:18)
[2017-04-11] MEDS: COZAAR PO SCH (10:18)
[2017-04-11] MEDS: ZITHROMAX PO SCH (10:18)
[2017-04-11] MEDS: BROVANA NEBU IH SCH ×2 (10:28→20:10)
[2017-04-11] MEDS: PULMICORT IH SCH ×2 (10:28→19:59)
[2017-04-11] MEDS: CLARITIN-D 24HR PO SCH (15:10)
--- NOTE | 2017-04-11 17:53 | Progress Note ---
Assessment and Plan Assessment and plan: --Acute hypoxic respiratory failure; oxygen titrate O2 sats to more than 90% Nebulizers, IV steroids, IV antibiotics, inhalation steroids, supportive care , add Mucomyst --Elevated D dimers; workup negative for PE and DVT --Accelerated hypertension; continue current antihypertensives and when necessary medications --Acute exacerbation of COPD; oxygen, nebulizers, tapering doses of steroids, IV antibiotics, inhalation steroids --Acute bronchitis; bronchodilators, antihistamines, supportive care --Acute pneumonitis; antibiotic, follow cultures --Acute renal failure due to vasomotor nephropathy Closely monitor renal function, avoid nephrotoxin --DVT prophylaxis with Lovenox --Full code Closely monitor the patient and adjust management as needed Evaluation for home oxygen at discharge in 1-2 days Plan of care discussed with the patient, answered all his questions History Interval history: Patient seen and examined medical records reviewed Symptoms significantly improved, still has mild wheeze and chest congestion Alert awake oriented 3 not in acute distress Vital signs reviewed Hospitalist Physical - Constitutional Vitals: Temp Pulse Resp BP Pulse Ox 98.8 F 117 H 24 147/78 91 04/11/17 15:33 04/11/17 15:33 04/11/17 15:33 04/11/17 15:33 04/11/17 15:33 General appearance: Present: no acute distress, well-nourished - EENT Eyes: Present: PERRL, EOM intact - Neck Neck: Present: supple, normal ROM - Respiratory Respiratory effort: normal Respiratory: bilateral: diminished, negative: rales, rhonchi, wheezing - Cardiovascular Rhythm: regular Heart Sounds: Present: S1 & S2 - Extremities Extremities: no ischemia, No edema - Abdominal General gastrointestinal: soft, non-tender, non-distended, normal bowel sounds - Integumentary Integumentary: Present: clear, warm - Psychiatric Psychiatric: appropriate mood/affect, cooperative - Neurologic Neurologic: CNII-XII intact, moves all extremities Results - Labs CBC & Chem 7: 04/10/17 04:46 04/10/17 04:46 Labs: Laboratory Last Values WBC 11.2 K/mm3 (4.5-11.0) H 04/10/17 04:46 RBC 4.88 M/mm3 (3.65-5.03) 04/10/17 04:46 Hgb 14.9 gm/dl (11.8-15.2) 04/10/17 04:46 Hct 43.4 % (35.5-45.6) 04/10/17 04:46 MCV 89 fl (84-94) 04/10/17 04:46 MCH 31 pg (28-32) 04/10/17 04:46 MCHC 34 % (32-34) 04/10/17 04:46 RDW 14.5 % (13.2-15.2) 04/10/17 04:46 Plt Count 228 K/mm3 (140-440) 04/10/17 04:46 Lymph % (Auto) 8.1 % (13.4-35.0) L 04/10/17 04:46 [place] % (Auto) 4.0 % (0.0-7.3) 04/10/17 04:46 Eos % (Auto) 0.0 % (0.0-4.3) 04/10/17 04:46 Baso % (Auto) 0.1 % (0.0-1.8) 04/10/17 04:46 Lymph # 0.9 K/mm3 (1.2-5.4) L 04/10/17 04:46 [place] # 0.5 K/mm3 (0.0-0.8) 04/10/17 04:46 Eos # 0.0 K/mm3 (0.0-0.4) 04/10/17 04:46 Baso # 0.0 K/mm3 (0.0-0.1) 04/10/17 04:46 Add Manual Diff Complete 04/08/17 20:52 Total Counted 100 04/08/17 20:52 Seg Neutrophils % 87.8 % (40.0-70.0) H 04/10/17 04:46 Seg Neuts % (Manual) 53.0 % (40.0-70.0) 04/08/17 20:52 Band Neutrophils % 0 % 04/08/17 20:52 Lymphocytes % (Manual) 23.0 % (13.4-35.0) 04/08/17 20:52 Reactive Lymphs % (Man) 1.0 % 04/08/17 20:52 Monocytes % (Manual) 7.0 % (0.0-7.3) 04/08/17 20:52 Eosinophils % (Manual) 15.0 % (0.0-4.3) H 04/08/17 20:52 Basophils % (Manual) 1.0 % (0.0-1.8) 04/08/17 20:52 Metamyelocytes % 0 % 04/08/17 20:52 Myelocytes % 0 % 04/08/17 20:52 Promyelocytes % 0 % 04/08/17 20:52 Blast Cells % 0 % 04/08/17 20:52 Nucleated RBC % Not Reportable 04/08/17 20:52 Seg Neutrophils # 9.8 K/mm3 (1.8-7.7) H 04/10/17 04:46 Seg Neutrophils # Man 3.9 K/mm3 (1.8-7.7) 04/08/17 20:52 Band Neutrophils # 0.0 K/mm3 04/08/17 20:52 Lymphocytes # (Manual) 1.7 K/mm3 (1.2-5.4) 04/08/17 20:52 Abs React Lymphs (Man) 0.1 K/mm3 04/08/17 20:52 Monocytes # (Manual) 0.5 K/mm3 (0.0-0.8) 04/08/17 20:52 Eosinophils # (Manual) 1.1 K/mm3 (0.0-0.4) H 04/08/17 20:52 Basophils # (Manual) 0.1 K/mm3 (0.0-0.1) 04/08/17 20:52 Metamyelocytes # 0.0 K/mm3 04/08/17 20:52 Myelocytes # 0.0 K/mm3 04/08/17 20:52 Promyelocytes # 0.0 K/mm3 04/08/17 20:52 Blast Cells # 0.0 K/mm3 04/08/17 20:52 WBC Morphology Not Reportable 04/08/17 20:52 Hypersegmented Neuts Not Reportable 04/08/17 20:52 Hyposegmented Neuts Not Reportable 04/08/17 20:52 Hypogranular Neuts Not Reportable 04/08/17 20:52 Smudge Cells Not Reportable 04/08/17 20:52 Toxic Granulation Not Reportable 04/08/17 20:52 Toxic Vacuolation Not Reportable 04/08/17 20:52 Dohle Bodies Not Reportable 04/08/17 20:52 Pelger-Huet Anomaly Not Reportable 04/08/17 20:52 Ángel Rods Not Reportable 04/08/17 20:52 Platelet Estimate Consistent w auto 04/08/17 20:52 Clumped Platelets Not Reportable 04/08/17 20:52 Plt Clumps, EDTA Not Reportable 04/08/17 20:52 Large Platelets Not Reportable 04/08/17 20:52 Giant Platelets Not Reportable 04/08/17 20:52 Platelet Satelliting Not Reportable 04/08/17 20:52 Plt Morphology Comment Not Reportable 04/08/17 20:52 RBC Morphology Not Reportable 04/08/17 20:52 Dimorphic RBCs Not Reportable 04/08/17 20:52 Polychromasia Not Reportable 04/08/17 20:52 Hypochromasia Not Reportable 04/08/17 20:52 Poikilocytosis Not Reportable 04/08/17 20:52 Anisocytosis Not Reportable 04/08/17 20:52 Microcytosis Not Reportable 04/08/17 20:52 Macrocytosis Not Reportable 04/08/17 20:52 Spherocytes Not Reportable 04/08/17 20:52 Pappenheimer Bodies Not Reportable 04/08/17 20:52 Sickle Cells Not Reportable 04/08/17 20:52 Target Cells Not Reportable 04/08/17 20:52 Tear Drop Cells Not Reportable 04/08/17 20:52 Ovalocytes Not Reportable 04/08/17 20:52 Helmet Cells Not Reportable 04/08/17 20:52 Pierre-[place] Bodies Not Reportable 04/08/17 20:52 [place] Rings Not Reportable 04/08/17 20:52 [place] Cells Not Reportable 04/08/17 20:52 Bite Cells Not Reportable 04/08/17 20:52 Crenated Cell Not Reportable 04/08/17 20:52 Elliptocytes Not Reportable 04/08/17 20:52 Acanthocytes (Spur) Not Reportable 04/08/17 20:52 Rouleaux Not Reportable 04/08/17 20:52 Hemoglobin C Crystals Not Reportable 04/08/17 20:52 Schistocytes Not Reportable 04/08/17 20:52 Malaria parasites Not Reportable 04/08/17 20:52 Telly Bodies Not Reportable 04/08/17 20:52 Hem Pathologist Commnt No 04/08/17 20:52 PT 13.5 Sec. (12.2-14.9) 04/08/17 20:52 INR 0.98 (0.87-1.13) 04/08/17 20:52 APTT 27.1 Sec. (24.2-36.6) 04/08/17 20:52 D-Dimer 338.05 ng/mlDDU (0-234) H 04/08/17 20:52 Sodium 139 mmol/L (137-145) 04/10/17 04:46 Potassium 3.6 mmol/L (3.6-5.0) 04/10/17 04:46 Chloride 96.7 mmol/L (98-107) L 04/10/17 04:46 Carbon Dioxide 20 mmol/L (22-30) L 04/10/17 04:46 Anion Gap 26 mmol/L 04/10/17 04:46 BUN 31 mg/dL (9-20) H 04/10/17 04:46 Creatinine 1.4 mg/dL (0.8-1.5) 04/10/17 04:46 Estimated GFR > 60 ml/min 04/10/17 04:46 BUN/Creatinine Ratio 22 % 04/10/17 04:46 Glucose 222 mg/dL (75-100) H 04/10/17 04:46 Lactic Acid 1.20 mmol/L (0.7-2.0) 04/08/17 20:52 Calcium 8.9 mg/dL (8.4-10.2) 04/10/17 04:46 Total Bilirubin 0.30 mg/dL (0.1-1.2) 04/08/17 23:03 AST 22 units/L (5-40) 04/08/17 23:03 ALT 15 units/L (7-56) 04/08/17 23:03 Alkaline Phosphatase 101 units/L (35-129) 04/08/17 23:03 Total Creatine Kinase 535 units/L (55-170) H 04/08/17 20:52 CK-MB (CK-2) 7.2 ng/mL (0.0-4.0) H 04/08/17 20:52 CK-MB (CK-2) Rel Index 1.3 (0-4) 04/08/17 20:52 Troponin T < 0.010 ng/mL (0.00-0.029) 04/08/17 22:43 NT-Pro-B Natriuret Pep 45.11 pg/mL (0-900) 04/08/17 20:57 Total Protein 7.4 g/dL (6.3-8.2) 04/08/17 23:03 Albumin 4.3 g/dL (3.9-5) 04/08/17 23:03 Albumin/Globulin Ratio 1.4 % 04/08/17 23:03 Lipase 26 units/L (13-60) 04/08/17 20:52
[2017-04-11] MEDS: MUCOMYST INHALATION INHALATION SCH (19:58)
[2017-04-12] MEDS: DUONEB *Not for PRN Use IH SCH ×3 (02:27→14:02)
[2017-04-12] MEDS: ROBITUSSIN AC PO PRN ×3 (05:48→12:15)
[2017-04-12] MEDS: LASIX IV SCH (05:49)
[2017-04-12] MEDS: APRESOLINE PO SCH ×2 (05:49→13:57)
[2017-04-12] MEDS: BROVANA NEBU IH SCH (08:00)
[2017-04-12] MEDS: PULMICORT IH SCH (08:00)
[2017-04-12] MEDS: MUCOMYST INHALATION INHALATION SCH (08:00)
[2017-04-12] MEDS: LOVENOX SUB-Q SCH (09:34)
[2017-04-12] MEDS: NORVASC PO SCH (09:34)
[2017-04-12] MEDS: ZITHROMAX PO SCH (09:34)
[2017-04-12] MEDS: COZAAR PO SCH (10:45)
[2017-04-12] MEDS: CLARITIN-D 24HR PO SCH (12:23)
--- NOTE | 2017-04-12 13:11 | Discharge Summary ---
Providers - Providers Date of Admission: 04/09/17 02:27 Date of discharge: 04/12/17 Attending physician: ERIC HIDALGO Primary care physician: VONNIE YEE Hospitalization Reason for admission: worsening shortness of breath Condition: Serious Pertinent studies: Chest x-ray; no acute abnormality CTA; no PE Lower extremity venous Doppler; no DVT Hospital course: 58-year-old obese male patient with significant history of COPD hypertension was admitted through emergency room with worsening shortness of breath of one- week duration Evaluated noted to be in acute on chronic respiratory failure secondary to hypoxia as well as acute exacerbation of COPD Admitted management with nebulizers and IV steroids and IV antibiotics inhalation steroids and supportive care Symptoms significantly improved Elevated d-dimer , negative PE and DVT Today he is comfortable in bed mild congestion and cough significantly improved Vital signs stable, physical examination at discharge is unremarkable Evaluated for home oxygen, not a candidate since his oxygen saturations were within normal limits room air resting and ambulatory Discharge diagnosis; --Acute hypoxic respiratory failure; improved --Elevated D dimers; workup negative for PE and DVT --Accelerated hypertension; stable on antihypertensives --Acute exacerbation of COPD; oxygen, nebulizers, tapering doses of steroids, IV antibiotics, inhalation steroids --Acute bronchitis; bronchodilators, antihistamines, --Acute pneumonitis; on antibiotics --Acute renal failure due to vasomotor nephropathy ,resolved Disposition: DC-01 TO HOME OR SELFCARE Time spent for discharge: 32 min Core Measure Documentation - Palliative Care Palliative Care/ Comfort Measures: Not Applicable - Core Measures Any of the following diagnoses?: none Exam - Constitutional Vitals: Temp Pulse Resp BP Pulse Ox 98.7 F 104 H 22 160/109 94 04/12/17 12:10 04/12/17 12:10 04/12/17 12:10 04/12/17 12:10 04/12/17 12:10 General appearance: Present: no acute distress, well-nourished, obese - EENT Eyes: Present: PERRL, EOM intact - Neck Neck: Present: supple, normal ROM - Respiratory Respiratory effort: normal Respiratory: bilateral: diminished, wheezing, negative: rales, rhonchi - Cardiovascular Rhythm: regular Heart Sounds: Present: S1 & S2 - Extremities Extremities: no ischemia, No edema - Abdominal General gastrointestinal: Present: soft, non-tender, non-distended, normal bowel sounds - Integumentary Integumentary: Present: clear, warm - Musculoskeletal Musculoskeletal: strength equal bilaterally - Psychiatric Psychiatric: appropriate mood/affect, cooperative - Neurologic Neurologic: CNII-XII intact, moves all extremities Plan Activity: advance as tolerated Diet: low salt Additional Instructions: Room air resting O2 sats; 95%. Room air ambulatory O2 sats; 94-95%. No Indication for home oxygen. Advised to follow with primary care physician in 2-3 days Follow up with: VONNIE YEE MD [Primary Care Provider] - 3-5 Days GLADIS DANIELLE MD [Staff Physician] - 7 Days Prescriptions: Albuterol Sulfate [Ventolin HFA] 2 puff IH Q4H PRN 30 Days hfa.[id number].[email or web address] PRN Reason: Shortness Of Breath Ciprofloxacin HCl [Ciprofloxacin TAB] 500 mg PO Q12H #20 tab cloNIDine [Catapres] 0.3 mg PO BID #60 tablet guaiFENesin/DEXTROMETHORPHAN [Mucinex Dm ER 600-30 mg Tablet] 1 each PO BID #30 tab.er.12h Ipratropium/Albuter (Nf) [Combivent (Nf)] 2 puff IH QID 30 Days inha Prednisone [predniSONE 10 mg (6-Day Pack, 21 Tabs)] 10 mg PO .TAPER #1 tab.ds.pk
[2017-04-12 15:56] VITALS: BP 153/96
== END 2017-04-12 16:00 | disposition home or self-care (01) | DRG 189 ==
LOC: ED 20:06 → 3A 04-09 02:27
PROVIDERS: ADMIT Internal Medicine; ATTEND Internal Medicine
PROC: 3E0234Z Introduction of Serum, Toxoid and Vaccine into Muscle, Percutaneous Approach (ICD-10-PCS; principal; 2017-04-10)
DX: J96.21 Acute and chronic respiratory failure with hypoxia (principal); J18.9 Pneumonia, unspecified organism; N17.0 Acute kidney failure with tubular necrosis; J44.1 Chronic obstructive pulmonary disease with (acute) exacerbation; J44.0 Chronic obstructive pulmonary disease with (acute) lower respiratory infection; I10 Essential (primary) hypertension; J20.9 Acute bronchitis, unspecified; E66.9 Obesity, unspecified; Z68.35 Body mass index [BMI] 35.0-35.9, adult; Z23 Encounter for immunization; Z87.891 Personal history of nicotine dependence
CPT/HCPCS: 36415; 71010; 71275; 80048; 80053; 82140; 82550; 82553; 83690; 83880; 84484; 85007; 85025; 85379; 85610; 85730; 90686; 93005; 93010; 93970; 94640; 94760; 96374; 96375; J0360; J0456; J1650; J1940; J1956; J2920; J2930; J7050; Q9967